=== PATIENT | male | born 1965 | race Caucasian/White ===

== ENCOUNTER 2023-11-15 16:14 | Emergency (ER) | payer BC ==
[~2023-11-15] VITALS: Ht 180.3 cm; Wt 78.5 kg
[2023-11-15 16:20] VITALS: TEMP 98.3
[2023-11-15] MEDS ORDERED: FAMOTIDINE (20 MG) 20 MG TABLET ONE (16:58)
[2023-11-15] MEDS ORDERED: MAG HYDROX/AL HYDROX/SIMETH 30 ML UDC ONE (16:58)
[2023-11-15] MEDS: MAG HYDROX/AL HYDROX/SIMETH 30 ML UDC PO ONE (17:00)
[2023-11-15] MEDS: FAMOTIDINE (20 MG) 20 MG TABLET PO ONE (17:00)
[2023-11-15 17:18] LABS: BASOPHILS # (AUTO) 0.1 K/uL (0.0-0.2); BASOPHILS % (AUTO) 1.2 % (0.0-2.0); EOSINOPHILS # (AUTO) 0.2 K/uL (0.0-0.7); EOSINOPHILS % (AUTO) 2.7 % (0.0-6.0); HEMATOCRIT 44 % (39-51); HEMOGLOBIN 15.1 g/dL (13.5-17.5); LYMPHOCYTES # (AUTO) 1.4 K/uL (0.8-4.8); LYMPHOCYTES % (AUTO) 17.4 % (20.0-44.0); MEAN CORPUSCULAR HEMOGLOBIN 32 PG (26.0-33.0); MEAN CORPUSCULAR HGB CONC 34 g/dl (31.0-36.0); MEAN CORPUSCULAR VOLUME 93 fL (80-96); MONOCYTES # (AUTO) 0.7 K/uL (0.1-1.30); MONOCYTES % (AUTO) 8.4 % (2.0-12.0); NEUTROPHILS # (AUTO) 5.8 K/uL (1.8-8.9); NEUTROPHILS % (AUTO) 70.3 % (43.0-81.0); PLATELET COUNT (AUTO) 267 K/uL (150-450); RED BLOOD CELL COUNT(AUTO) 4.78 MIL/uL (4.5-6.0); RED CELL DISTRIBUTION WIDTH 14.4 % (11.5-15.0); WHITE BLOOD COUNT (AUTO) 8.2 K/uL (4.3-11.0)
[2023-11-15 17:32] LABS: CALCIUM, SERUM 9.5 mg/dL (8.5-10.1); CARBON DIOXIDE 26 mmol/L (21-32); CHLORIDE 104 mmol/L (98-107); CREATININE 0.9 mg/dL (0.6-1.3); GLUCOSE 83 mg/dL (74-106); POTASSIUM 4.2 mmol/L (3.5-5.1); SODIUM SERUM 139 mmol/L (136-145); UREA NITROGEN, BLOOD 21 mg/dL (7-18)
[2023-11-15] MEDS ORDERED: ASPIRIN 325 MG TABLET ONE (18:12)
[2023-11-15] MEDS: ASPIRIN 325 MG TABLET PO ONE (18:13)
[2023-11-15 19:15] VITALS: BP 166/107; O2SAT 97
== END 2023-11-16 00:20 | disposition short-term general hospital (02) ==
LOC: ER 16:14
DX: I21.4 Non-ST elevation (NSTEMI) myocardial infarction (principal); F17.210 Nicotine dependence, cigarettes, uncomplicated; Z20.822 Contact with and (suspected) exposure to COVID-19
CPT/HCPCS: 36415; 71045-TC; 80048-TC; 84484-TC; 85025-TC